=== PATIENT | female | born 1995 | race Two or more races ===

== ENCOUNTER 2018-02-14 13:30 | Emergency (ER) | payer MEDICAID ==
[~2018-02-14] VITALS: Ht 157.5 cm; Wt 66.7 kg
[2018-02-14 13:34] VITALS: Ht 157.5 cm; Wt 66.7 kg
[2018-02-14 13:58] LABS: BASOPHIL % 0.2 % (0-2); PLATELET COUNT 340 x10^3mcL (130-400)
[2018-02-14 14:02] LABS: CALCIUM 8.8 mg/dL (8.5-10.1); CARBON DIOXIDE 30.3 mmol/L (21-32); CHLORIDE SERUM 104 mmol/L (98-107); CREATININE SERUM 0.7 mg/dL (0.6-1.0); GFR1 > 60 mL/min; GLUCOSE SERUM 103 mg/dL (74-106); POTASSIUM SERUM 3.9 mmol/L (3.5-5.1); SODIUM SERUM 140 mmol/L (136-145)
[2018-02-14 15:14] VITALS: BP 122/70
== END 2018-02-14 15:14 | disposition home or self-care (01) ==
LOC: ED 13:30
PROVIDERS: Emergency Medicine
PROC: BW21ZZZ Computerized Tomography (CT Scan) of Abdomen and Pelvis (ICD-10-PCS; principal; 2018-02-14)
DX: R10.31 Right lower quadrant pain (principal); D64.9 Anemia, unspecified
CPT/HCPCS: 36415; J1885; Q0162

== ENCOUNTER 2019-04-22 08:31 | Emergency (ER) | payer MEDICAID ==
[~2019-04-22] VITALS: Ht 157.5 cm; Wt 73.6 kg
[2019-04-22 10:17] VITALS: Ht 157.5 cm; Wt 73.6 kg
[2019-04-22 12:46] VITALS: BP 131/74
== END 2019-04-22 12:46 | disposition home or self-care (01) ==
LOC: ED 08:31
DX: J98.01 Acute bronchospasm (principal); R11.10 Vomiting, unspecified; Z86.2 Personal history of diseases of the blood and blood-forming organs and certain disorders involving the immune mechanism
CPT/HCPCS: 87804; J7510; J7613; J7644